=== PATIENT | male | born 1965 | race African-American/Black ===

== ENCOUNTER 2023-07-08 07:52 | Emergency (ER) | payer OTHER ==
--- OUTSIDE RECORDS SUMMARY | 2023-07-08 07:57 | XMS REPORT | Continuity of Care Document ---
:[address] [facility] t Address 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 Allergies, Adverse Reactions, Alerts This patient has no known allergies or adverse reactions. Social History Social Habit Start Date Stop Date Quantity Comments Source Sexual orientation Lara Cortez - External Gender identity Lara rosa - External Tobacco use and 2023-03-08 2023-03-08 Smokeless tobacco Ke juma Cortez exposure 00:00:00 00:00:00 non-user - External Alcohol intake 2023-03-08 2023-03-08 Ex-drinker Lara Crawford bold 00:00:00 00:00:00 (finding) - External History of Social 2023-03-08 2023-03-08 Lara Cortez function 00:00:00 00:00:00 - External Sex [birth year] At [birth year] Lara rosa 00:00:00 00:00:00 - External Smoking Status Start Date Stop Date Source Never smoked tobacco Lara moody - External Medications Ordered Filled Start Stop Current Ordering Indication Dosage Frequency Signature Comments Components Source Medication Medication Date Date Medication? Clinician (SIG) Name Name Trazodone Yes [id number] TAKE 1 K elsey HCl 100 MG 7-25 TABLET BY Vinh old oral Tablet 00:00: MOUTH ONCE - 00 DAILY Externa NEEDED AT l BEDTIME Losartan Yes 1{tbl} Take 1 Kelse y Potassium-H 6-13 tablet by Ty sylvain CTZ 100-25 00:00: mouth - MG oral 00 daily Externa Tablet l Sertraline Yes 50mg Take 1 Kelse y HCl 50 MG 6-13 tablet (50 Seyb old oral Tablet 00:00: mg total) - 00 by mouth Externa daily l Trazodone 2022- No TAKE 1 Kelse y HCl 100 MG 6-13 -25 TABLET BY Ty narayan oral Tablet 00:00: 00:00 MOUTH ONCE - 00 :00 DAILY Externa NEEDED AT l BEDTIME Vital Signs Vital Name Observation Time Observation Value Comments Source Systolic blood 2023-03-08 21:15:00 100 mm[Hg] Lara Seybold - pressure External Diastolic blood 2023-03-08 21:15:00 65 mm[Hg] Osmany lynne Seybold - pressure External Heart rate 2023-03-08 21:15:00 89 /min Lara ray - External Body temperature 2023-03-08 21:15:00 36.61 Dianne Shantel ey Seybold - External Respiratory rate 2023-03-08 21:15:00 14 /min Shantel ey Seybold - External Body height 2023-03-08 21:15:00 165.1 cm Lara ray - External Body weight 2023-03-08 21:15:00 81.194 kg Lara ray - External BMI 2023-03-08 21:15:00 29.79 kg/m2 Lara ray - External Oxygen saturation in 2023-03-08 21:15:00 99 /min Lara Cortez - Arterial blood by External Pulse oximetry Procedures This patient has no known procedures. Encounters Start End Encounter Admission Attending Care Care Encounter Source Date/Time Date/Time Type Type Clinicians Facility Department ID 2023-05-16 2023-05-16 Outpatient LARA SCHERER [id number] Lara 00:00:00 00:00:00 NOELLE thao 2023-05-02 2023-05-02 Outpatient LARA PALACIOS [id number] Lara 00:00:00 00:00:00 KELVIN thao 2023-03-08 2023-03-08 Outpatient LAB90 LARA BERMUDEZ [id number] Lara 17:00:00 17:00:00 Thomas thao 2023-03-08 2023-03-08 Outpatient LARA SCHERER [id number] Lara 16:15:00 16:15:00 NOELLE thao Results This patient has no known results.
--- NOTE | 2023-07-08 09:05 | ER ---
Nurse's Notes [facility] Name: Page Scott Age: 58 yrs Sex: Male : 1965 Arrival Date: 07/08/2023 Time: 07:52 Bed 4 Private MD: Diagnosis: Left lower extremity radiculopathy, left hip contusion, left upper extremity contusion Presentation: 07/08 08:05 Chief complaint: Patient states: Fell onto L side 2.5 weeks ago. Still has severe pain ll1 to entire L side of body since. Coronavirus screen: Vaccine status: Patient reports being unvaccinated. Client denies travel out of the [place] in the last 14 days. At this time, the client does not indicate any symptoms associated with coronavirus-19. Ebola Screen: Patient denies travel to an Ebola-affected area in the 21 days before illness onset. Initial Sepsis Screen: Does the patient meet any 2 criteria? No. Patient's initial sepsis screen is negative. Does the patient have a suspected source of infection? Yes: Bone or joint infection. Risk Assessment: Do you want to hurt yourself or someone else? Patient reports no desire to harm self or others. Onset of symptoms was June 15, 2023. 08:05 Method Of Arrival: Wheelchair ll1 08:05 Acuity: MINOR 3 ll1 Historical: - Allergies: 08:05 No Known Allergies; ll1 - PMHx: 08:05 Hypertensive disorder; ll1 - PSHx: 08:05 L hip/R wrist SX; ll1 - Immunization history:: Adult Immunizations up to date. - Social history:: Smoking status: Patient denies any tobacco usage or history of. Screenin:30 [facility] ED Fall Risk Assessment (Adult) History of falling in the last 3 months, kc6 including since admission Yes- single mechanical fall (1 pt) Confusion or Disorientation No (0 pts) Intoxicated or Sedated No (0 pts) Impaired Gait No (0 pts) Mobility Assist Device Used No (0 pt) Altered Elimination No (0 pt) Score/Fall Risk Level 0 - 2 = Low Risk. Abuse screen: Denies threats or abuse. Denies injuries from another. Nutritional screening: No deficits noted. Tuberculosis screening: No symptoms or risk factors identified. Assessment: 08:30 General: Appears in no apparent distress. uncomfortable, Behavior is calm, cooperative, kc6 appropriate for age. Neuro: Level of Consciousness is awake, alert, obeys commands, Oriented to person, place, time, situation, Appropriate for age. Cardiovascular: Capillary refill < 3 seconds. Respiratory: Airway is patent Trachea midline Respiratory effort is even, unlabored, Respiratory pattern is regular, symmetrical. GI: No signs and/or symptoms were reported involving the gastrointestinal system. : No signs and/or symptoms were reported regarding the genitourinary system. EENT: No signs and/or symptoms were reported regarding the EENT system. Derm: No signs and/or symptoms reported regarding the dermatologic system. Skin is intact, is healthy with good turgor, Skin is pink, warm \T\ dry. Musculoskeletal: No signs and/or symptoms reported regarding the musculoskeletal system. Circulation, motion, and sensation intact. Capillary refill < 3 seconds, Range of motion: intact in all extremities. Vital Signs: 08:05 BP 135 / 96; Pulse 88; Resp 18; Temp 97.5; Pulse Ox 100% ; Weight 74.39 kg; Height 5 ll1 ft. 5 in. ; Pain 10/10; 09:22 BP 134 / 89; Pulse 79; Resp 18; Temp 97.8; Pulse Ox 100% on R/A; ph 08:05 Body Mass Index 27.29 (74.39 kg, 165.1 cm) ll1 08:05 Pain Scale: Adult ll1 ED Course: 07:57 Patient arrived in ED. mg5 08:01 Valerie Putnam, TOM is Primary Nurse. ph 08:04 Courtney Eaton MD is Attending Physician. sp3 08:05 Arm band placed on Patient placed in an exam room, on a stretcher. ll1 08:07 Triage completed. ll1 08:30 Patient has correct armband on for positive identification. Bed in low position. Call kc6 light in reach. Side rails up X 1. Client placed on continuous cardiac and pulse oximetry monitoring. NIBP monitoring applied. 08:30 Patient maintains SpO2 saturation greater than 95% on room air. kc6 08:48 Lumbar Spine (3 Views) XRAY In Process Unspecified. EDMS 09:04 Mendoza Winters MD is Referral Physician. sp3 09:22 No provider procedures requiring assistance completed. Patient did not have IV access ph during this emergency room visit. Administered Medications: No medications were administered Medication: : VIS not applicable for this client. ph Outcome: :05 Discharge ordered by MD. best : Discharged to home ambulatory, ph : Condition: good : Discharge instructions given to patient, Instructed on discharge instructions, follow up and referral plans. medication usage, Demonstrated understanding of instructions, follow-up care, medications, Prescriptions given X 2, : Patient left the ED. ph Signatures: Dispatcher [employer] EDValerie Quarles, RN RN ph Deana Payan RN RN ll1 Courtney Eaton MD MD sp3 Cesilia Ojeda RN RN kc6 Gabriella Jose 5
--- NOTE | 2023-07-08 09:05 | EDPHYS ---
Physician Documentation [facility] Name: Page Scott Age: 58 yrs Sex: Male : 1965 Arrival Date: 07/08/2023 Time: 07:52 Bed 4 Private MD: ED Physician Courtney Eaton HPI: 07/08 08:10 This 58 yrs old Black Male presents to ER via Wheelchair with complaints of Fall sp3 Injury, Pain All Over - LEFT SIDE. 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 Patient was seen at [place] [facility] approximately 1 week ago and he states they did "no x-rays and just put him on some pain pills". He states that he has radiculopathy type symptoms on his left lower extremity and some pain to palpation in the musculature muscle pain on the left upper extremity. He denies head injury, LOC, neck pain, chest pain, upper back pain, loss of bowel or bladder control, syncope, near syncope, other neurological complaints, memory loss, or any other signs or symptoms on ROS at this time.. Historical: - Allergies: 08:05 No Known Allergies; ll1 - PMHx: 08:05 Hypertensive disorder; ll1 - PSHx: 08:05 L hip/R wrist SX; ll1 - Immunization history:: Adult Immunizations up to date. - Social history:: Smoking status: Patient denies any tobacco usage or history of. ROS: 08:11 Constitutional: Negative for fever, chills, and weight loss, Eyes: Negative for injury, sp3 pain, redness, and discharge, ENT: Negative for injury, pain, and discharge, Neck: Negative for injury, pain, and swelling, Cardiovascular: Negative for chest pain, palpitations, and edema, Respiratory: Negative for shortness of breath, cough, wheezing, and pleuritic chest pain, Abdomen/GI: Negative for abdominal pain, nausea, vomiting, diarrhea, and constipation, Skin: Negative for injury, rash, and discoloration, Neuro: Negative for headache, weakness, numbness, tingling, and seizure, Psych: Negative for depression, anxiety, suicide ideation, homicidal ideation, and hallucinations, Allergy/Immunology: Negative for hives, rash, and allergies, Endocrine: Negative for neck swelling, polydipsia, polyuria, polyphagia, and marked weight changes, Hematologic/Lymphatic: Negative for swollen nodes, abnormal bleeding, and unusual bruising, 08:11 All other systems are negative, Exam: 08:11 Constitutional: This is a well developed, well nourished patient who is awake, alert, sp3 and in no acute distress. Head/Face: Normocephalic, atraumatic. Eyes: Pupils equal round and reactive to light, extra-ocular motions intact. Lids and lashes normal. Conjunctiva and sclera are non-icteric and not injected. Cornea within normal limits. Periorbital areas with no swelling, redness, or edema. ENT: Nares patent. No nasal discharge, no septal abnormalities noted. External auditory canals are clear. Oropharynx with no redness, swelling, or masses, exudates, or evidence of obstruction, uvula midline. Mucous membranes moist. Neck: Trachea midline, no thyromegaly or masses palpated, and no cervical lymphadenopathy. Supple, full range of motion without nuchal rigidity, or vertebral point tenderness. No Meningismus. Chest/axilla: Normal chest wall appearance and motion. Nontender with no deformity. No lesions are appreciated. Cardiovascular: Regular rate and rhythm with a normal S1 and S2. No gallops, murmurs, or rubs. Normal PMI, no JVD. No pulse deficits. Respiratory: Lungs have equal breath sounds bilaterally, clear to auscultation and percussion. No rales, rhonchi or wheezes noted. No increased work of breathing, no retractions or nasal flaring. Abdomen/GI: Soft, non-tender, with normal bowel sounds. No distension or tympany. No guarding or rebound. No evidence of tenderness throughout. Back: No spinal tenderness. No costovertebral tenderness. Full range of motion. Skin: Warm, dry with normal turgor. Normal color with no rashes, no lesions, and no evidence of cellulitis. Neuro: Awake and alert, GCS 15, oriented to person, place, time, and situation. Cranial nerves II-XII grossly intact. Motor strength 5/5 in all extremities. Sensory grossly intact. Cerebellar exam normal. Normal gait. Psych: Awake, alert, with orientation to person, place and time. Behavior, mood, and affect are within normal limits. 08:11 Musculoskeletal/extremity: Pain to palpation left upper extremity on the musculature with no joint pain. Distal neurovascular exam in all extremities are normal. Patient has mild pain on left straight leg raise at approximately 30 degrees. Patient is ambulatory though appears to be in pain when he walks.. Vital Signs: 08:05 BP 135 / 96; Pulse 88; Resp 18; Temp 97.5; Pulse Ox 100% ; Weight 74.39 kg; Height 5 ll1 ft. 5 in. ; Pain 10/10; 09:22 BP 134 / 89; Pulse 79; Resp 18; Temp 97.8; Pulse Ox 100% on R/A; ph 08:05 Body Mass Index 27.29 (74.39 kg, 165.1 cm) ll1 08:05 Pain Scale: Adult ll1 MDM: 08:04 Patient medically screened. sp3 08:15 Data reviewed: vital signs, nurses notes, radiologic studies. ED course: 58-year-old sp3 male with fall injury now with "pain on the entire left side" with maximal pain in the left lower extremity radiculopathy type pattern extending into his lower back. Will obtain lumbosacral x-rays and administer NSAIDs and muscle relaxers with follow-up with orthopedics. I have stressed the importance of the orthopedic referral and follow-up. I do believe patient has cord compression, infection, fracture, or any other concerning findings at this time.. 09:01 ED course: Patient's x-ray demonstrates scoliosis without any significant bony sp3 abnormalities. Left hip prosthesis is in normal position. At this time we will discharge patient home on oral NSAIDs and muscle relaxers with follow-up with orthopedics.. 07/08 08:08 Order name: Lumbar Spine (3 Views) XRAY sp3 Administered Medications: No medications were administered Disposition Summary: 07/08/23 09:05 Discharge Ordered Notes: Location: Home sp3 Condition: Stable sp3 Diagnosis - Left lower extremity radiculopathy, left hip contusion, left upper extremity sp3 contusion Followup: sp3 - With: Mendoza Winters MD - When: Upon discharge from the Emergency Department - Reason: Recheck today's complaints Discharge Instructions: - Discharge Summary Sheet sp3 - Contusion sp3 - Lumbosacral Radiculopathy sp3 Forms: - Medication Reconciliation Form sp3 - Thank You Letter sp3 - Antibiotic Education sp3 - Prescription Opioid Use sp3 - Patient Portal Instructions sp3 - Leadership Thank You Letter sp3 Prescriptions: - Cyclobenzaprine 10 mg Oral Tablet - take 1 tablet ORAL route every 8 hours As needed; 30 tablet; Refills: 0, sp3 Product Selection Permitted - Diclofenac Sodium 75 mg Oral Tablet Sustained Release - take 1 tablet ORAL route 2 times per day; 30 tablet; Refills: 0, Product sp3 Selection Permitted Signatures: Dispatcher [employer] Deana Delcid, RN RN ll1 Courtney Eaton MD MD sp3
--- NOTE | 2023-07-08 09:21 | RAD REPORT ---
EXAM DESCRIPTION: RAD - Lumbar Spine 3 Views - 07/08/2023 8:46 am CLINICAL HISTORY: Back pain FINDINGS: No fracture or dislocation is seen. Osteoporosis. Moderate scoliosis involves the spine. Calcifications overlying the right kidney may represent renal calculi
[2023-07-08 09:31] VITALS: O2SAT 100
[2023-07-08 09:33] VITALS: BP 134/89; TEMP 97.8
== END 2023-07-08 09:22 | disposition home or self-care (01) ==
LOC: ER 07:52
DX: M54.10 Radiculopathy, site unspecified (principal); S70.02XA Contusion of left hip, initial encounter; S40.022A Contusion of left upper arm, initial encounter; I10 Essential (primary) hypertension
CPT/HCPCS: 72100; 99284